=== PATIENT | female | born 1960 | race Caucasian/White ===

== ENCOUNTER 2017-12-06 13:36 | Emergency (ER) | payer SELFPAY ==
[~2017-12-06] VITALS: Ht 154.9 cm; Wt 63.2 kg
[2017-12-06 14:12] VITALS: BP 109/77; Ht 154.9 cm; Wt 63.2 kg
== END 2017-12-06 16:12 | disposition home or self-care (01) ==
LOC: ED 13:36
DX: H60.501 Unspecified acute noninfective otitis externa, right ear (principal)